=== PATIENT | male | born 1985 ===

== ENCOUNTER 2017-12-26 13:20 | Emergency (ER) | payer BC, MEDICAID ==
[2017-12-26 14:29] VITALS: BMI 22.3
[2017-12-26 15:03] VITALS: BP 121/78; PULSE 79; RESP 18; TEMP 98.7; O2SAT 100
--- NOTE | 2017-12-26 15:46 | ED PDOC ---
Upper Extremity Pain/Injury Time Seen by Provider: 12/26/17 15:27 Chief Complaint (Nursing): Upper Extremity Problem/Injury Chief Complaint (Provider): Right Shoulder Pain History Per: Patient History/Exam Limitations: no limitations Onset/Duration Of Symptoms: Days (x4) Current Symptoms Are (Timing): Still Present Additional Complaint(s): 32 y/o male with no significant pmhx, who presents to the ED complaining of right shoulder pain x4 days. Patient denies any recent injury or trauma to the shoulder. 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 Past Medical History Reviewed: Historical Data, Nursing Documentation, Vital Signs Vital Signs: Last Vital Signs Temp 98.7 F 12/26/17 15:03 Pulse 79 12/26/17 15:03 Resp 18 12/26/17 15:03 BP 121/78 12/26/17 15:03 Pulse Ox 100 12/26/17 15:03 - Medical History PMH: No Chronic Diseases - Surgical History Other surgeries: left elbow surgery - Family History Family History: States: Unknown Family Hx - Social History Current smoker - smoking cessation education provided: No Alcohol: None Drugs: Denies - Home Medications Home Medications: Ambulatory Orders Medication Instructions Recorded Cyclobenzaprine [Flexeril] 10 mg PO TID #27 tab 12/26/17 - Allergies Allergies/Adverse Reactions: Allergies Allergy/AdvReac Type Severity Reaction Status Date / Time No Known Allergies Allergy Verified 07/02/14 15:57 Review of Systems ROS Statement: Except As Marked, All Systems Reviewed And Found Negative Musculoskeletal: Positive for: Shoulder Pain (right) Physical Exam - Reviewed Nursing Documentation Reviewed: Yes Vital Signs Reviewed: Yes - Physical Exam Appears: Positive for: Non-toxic, No Acute Distress Head Exam: Positive for: ATRAUMATIC Skin: Positive for: Normal Color, Warm Eye Exam: Positive for: Normal appearance Cardiovascular/Chest: Positive for: Regular Rate, Rhythm. Negative for: Chest Non Tender, Murmur Respiratory: Positive for: Normal Breath Sounds (lungs clear to auscultation). Negative for: Rales, Stridor, Wheezing, Respiratory Distress, Plerual Rub Pulses-Carotid (L): 2+ Pulses-Carotid (R): 2+ Pulses-Radial (L): 2+ Pulses-Radial (R): 2+ Extremity: Positive for: Capillary Refill (2 seconds). Negative for: Normal ROM (right shoulder passive ROM full in all planes, active ROM full with exception of extension limited to 90 degrees, full supination) Neurologic/Psych: Positive for: Alert, Oriented - ECG O2 Sat by Pulse Oximetry: 100 (RA) Pulse Ox Interpretation: Normal Medical Decision Making Medical Decision Makin:27 Initial Impression: Tendonitis Plan: -Decadron Inj 10mg IM -Flexeril 10mg PO -Toradol 60mg IM -Tylenol 650mg PO -X-Ray Left Shoulder -Reevaluation 18:46 PROCEDURE: Radiographs of the Right Shoulder HISTORY: Decreased range of motion. No history trauma provided COMPARISON: No prior. FINDINGS: BONES: Normal. No fracture. JOINTS: Normal. Glenohumeral and acromioclavicular joints preserved. No osteoarthritis. SOFT TISSUES: Normal. OTHER FINDINGS: None. IMPRESSION: Normal radiographs of the right shoulder. Scribe Attestation: Documented by Savage Timmons, acting as a scribe for Wilian Chang PA-C. Provider Scribe Attestation: All medical record entries made by the Scribe were at my direction and personally dictated by me. I have reviewed the chart and agree that the record accurately reflects my personal performance of the history, physical exam, medical decision making, and the department course for this patient. I have also personally directed, reviewed, and agree with the discharge instructions and disposition. Disposition - Clinical Impression Clinical Impression: Shoulder pain, Tendonitis - Patient ED Disposition Is Patient to be Admitted: No Counseled Patient/Family Regarding: Studies Performed, Diagnosis, Need For Followup, Rx Given - Disposition Referrals: Jesus Cunningham MD [Staff Provider] - Disposition: Routine/Home Disposition Time: 19:28 Condition: GOOD Prescriptions: Cyclobenzaprine [Flexeril] 10 mg PO TID #27 tab Forms: [employer] (Italian)
--- NOTE | 2017-12-26 18:48 | RAD ---
PROCEDURE: Radiographs of the Right Shoulder HISTORY: Decreased range of motion. No history trauma provided COMPARISON: No prior. FINDINGS: BONES: Normal. No fracture. JOINTS: Normal. Glenohumeral and acromioclavicular joints preserved. No osteoarthritis. SOFT TISSUES: Normal. OTHER FINDINGS: None. IMPRESSION: Normal radiographs of the right shoulder.
== END 2017-12-26 19:44 | disposition home or self-care (01) ==
LOC: H.ER 13:20
DX: M25.511 Pain in right shoulder (principal)
CPT/HCPCS: 73020; 96372; 99283; J1100; J1885